=== PATIENT | male | born 1995 | race Caucasian/White ===

== ENCOUNTER 2017-09-28 15:07 | Emergency (ER) | payer OTHER ==
[~2017-09-28] VITALS: Ht 175.3 cm; Wt 124.7 kg
[2017-09-28 15:09] VITALS: Ht 175.3 cm; Wt 124.7 kg
[2017-09-28 16:20] VITALS: BP 137/97
== END 2017-09-28 16:20 | disposition home or self-care (01) ==
LOC: ED 15:07
DX: Z77.21 Contact with and (suspected) exposure to potentially hazardous body fluids (principal)

== ENCOUNTER 2018-09-13 18:06 | Emergency (ER) | payer OTHER ==
[~2018-09-13] VITALS: Ht 172.7 cm; Wt 127.0 kg
[2018-09-13 18:20] VITALS: BP 132/87; Ht 172.7 cm; Wt 127.0 kg
== END 2018-09-13 19:23 | disposition home or self-care (01) ==
LOC: ED 18:06
DX: Z77.21 Contact with and (suspected) exposure to potentially hazardous body fluids (principal)

== ENCOUNTER 2019-11-01 22:20 | Emergency (ER) | payer OTHER ==
[~2019-11-01] VITALS: Ht 172.7 cm; Wt 117.9 kg
[2019-11-01 22:24] VITALS: BP 177/99; Ht 172.7 cm; Wt 117.9 kg
== END 2019-11-01 23:25 | disposition home or self-care (01) ==
LOC: ED 22:20
DX: S61.451A Open bite of right hand, initial encounter (principal); R03.0 Elevated blood-pressure reading, without diagnosis of hypertension; W55.01XA Bitten by cat, initial encounter; Y93.89 Activity, other specified; Y92.89 Other specified places as the place of occurrence of the external cause; Y99.8 Other external cause status
CPT/HCPCS: 90715